=== PATIENT | male | born 1995 | race Caucasian/White ===

== ENCOUNTER 2020-10-03 15:04 | Emergency (ER) | payer MEDICAID ==
[~2020-10-03] VITALS: Ht 188 cm; Wt 127.0 kg
--- NOTE | 2020-10-03 15:10 | NUR ---
at bedside for assessment
--- NOTE | 2020-10-03 15:35 | NUR ---
Kiran from [facility] called and stes they will arrange pick up operator for patient
--- NOTE | 2020-10-03 15:38 | NUR ---
Patient discharged to home in stable condition. Able to ambulate with steady gait. took all belongings. Written and verbal after care instructions given. Patient verbalizes understanding of instructions. Stressed follow up or return to ER for worsening s/s.
[2020-10-03 15:42] VITALS: BP 109/79
== END 2020-10-03 15:40 | disposition home or self-care (01) ==
LOC: ER 15:04
DX: G40.909 Epilepsy, unspecified, not intractable, without status epilepticus (principal)
CPT/HCPCS: A4663